=== PATIENT | female | born 1970 | race Caucasian/White ===

== ENCOUNTER → 2020-10-08 | Outpatient (CLI) | payer BC, OTHER ==
--- NOTE | 2020-10-13 11:51 | SLEEPHOME ---
NOCTURNAL POLYSOMNOGRAPHY HOME ORDERED BY: Ismael Cook M.D. Diagnostic home sleep testing was performed due to concern for the obstructive sleep apnea syndrome. For testing, a nocturnal T3 respiratory monitoring device was used. Continuous record was made of pulse, oxygen saturation, air flow, chest and abdominal strain, and body position. Nine hours and 59 minutes of data were reviewed. There were 6 hours and 36 minutes marked as time in bed. During the interval marked time in bed, there were 45 respiratory events identified of 10 seconds in duration or greater for a respiratory disturbance index of 6.8. The events seen were primarily obstructive. Baseline pulse rate 66. Pulse rate range 49 to 101. Baseline saturation was 96%. Saturations fell to 86%. Testing was performed in both the supine and non-supine positions. IMPRESSION: Abnormal home sleep testing with repetitive respiratory events and oxygen desaturations to 86% with a respiratory event index of 6.8 is consistent with the obstructive sleep apnea syndrome. RECOMMENDATION: The patient should be encouraged to undergo a formal sleep evaluation.
== END ==
LOC: M SLEEP HO 10:10
PROVIDERS: ATTEND Internal Medicine Cardiovascular Disease
DX: R06.83 Snoring (principal)

== ENCOUNTER → 2021-09-01 | Outpatient (CLI) | payer BC, OTHER ==
--- NOTE | 2021-09-05 20:10 | SLEEPCENT ---
DATE: 09/01/2021 ORDERED BY: WEN Hogue Nocturnal polysomnography was performed for evaluation of sleep physiology in this patient with a history of snoring and nonrestorative sleep. Seven hours and 42 minutes of data were reviewed. There were 394.5 minutes of sleep identified. Sleep latency was mildly prolonged at 17.5 minutes. REM sleep was not achieved. Sleep architecture showed poor progression and some fragmentation. Overall sleep efficiency was 86.4%. The electrocardiogram showed a sinus rhythm with an average heart rate of 65 beats per minute. EEG showed coarsening in background possibly medication effect. No focal events were identified. There were only two obstructive respiratory events identified of 10 seconds in duration or greater for an apnea-hypopnea index of 0.3. Snoring was noted over the course of the study. Arousals from respiratory events when arousals from snoring were included occurred 0.6 times per hour. Significant activity was noted, however, in the limb leads with multiple trains of events. A limb movement arousal index of 18.3. Oxygen saturations remained 90% throughout the study. Some snoring was noted. IMPRESSIONS: 1. Periodic limb movement disorder (G47.61). Limb movement arousal index 18.3. 2. Snoring. RECOMMENDATION: Interventions to reduce the frequency of arousal from limb activity may improve the quality of the patient's sleep.
== END ==
LOC: M SLEEP 20:00
PROVIDERS: ATTEND Physician Assistant
DX: G47.61 Periodic limb movement disorder (principal); R40.0 Somnolence